=== PATIENT | female | born 1980 | race Two or more races ===

== ENCOUNTER 2020-01-27 17:46 | Emergency (ER) | payer MEDICARE, OTHER ==
[~2020-01-27] VITALS: Ht 157.5 cm; Wt 183.7 kg
--- NOTE | 2020-01-27 17:50 | NUR ---
Pt [id number]. ambulatory with steady gait. bibserlf c/o blurred vision x 1 1/2 weeks, eye test B: 20/20, R 20/20, L 20/50. PT stated she was pre diabetic and is wondering if she is diabetic. placed on monitor and pulse ox. vss. awaiting md for eval.
--- NOTE | 2020-01-27 18:48 | NUR ---
obedience trainer at bedside for labs
[2020-01-27 19:01] LABS: BASOPHILS # (AUTO) 0.1 /CMM (0.0-0.2); BASOPHILS % (AUTO) 1.3 % (0.0-2.0); EOSINOPHILS % (AUTO) 2.6 % (0.0-6.0); HEMATOCRIT 44 % (33-45); HEMOGLOBIN 14.7 g/dL (11.5-14.8); LYMPHOCYTES # (AUTO) 2.5 /CMM (0.8-4.8); LYMPHOCYTES % (AUTO) 34.6 % (20.0-44.0); MEAN CORPUSCULAR HGB CONC 34 g/dl (31.0-36.0); MEAN CORPUSCULAR VOLUME 88 fL (82-100); MONOCYTES # (AUTO) 0.6 /CMM (0.1-1.30); MONOCYTES % (AUTO) 8.1 % (2.0-12.0); NEUTROPHILS # (AUTO) 3.8 /CMM (1.8-8.9); NEUTROPHILS % (AUTO) 53.4 % (43.0-81.0); PLATELET COUNT (AUTO) 196 /CMM (150-450); RED BLOOD CELL COUNT(AUTO) 4.99 MIL/uL (4.0-5.2); WHITE BLOOD COUNT (AUTO) 7.1 K/uL (4.3-11.0)
[2020-01-27 19:12] LABS: CALCIUM, SERUM 8.9 mg/dL (8.5-10.1); CARBON DIOXIDE 30 mmol/L (21-32); CHLORIDE 103 mmol/L (98-107); CREATININE 0.8 mg/dL (0.6-1.3); GLUCOSE 138 mg/dL (74-106); POTASSIUM 3.8 mmol/L (3.5-5.1); SODIUM SERUM 139 mmol/L (136-145); UREA NITROGEN, BLOOD 11 mg/dL (7-18)
[2020-01-27 19:40] LABS: APPEARANCE,URINE Clear (CLEAR); BILIRUBIN,URINE Negative (NEGATIVE); BLOOD, URINE Moderate Ery/uL (NEGATIVE); COLOR,URINE Yellow (YELLOW); KETONES,URINE Negative (NEGATIVE); LEUKOCYTE ESTERASE ,URINE Negative (NEGATIVE); NITRITE, URINE Negative (NEGATIVE); PH,URINE 6.5 (5.0-8.0); PROTEIN,URINE Negative (NEGATIVE); UGLUCOSE Negative (NEGATIVE); UROBILINOGEN,URINE 0.2 EU/dL (0.2)
--- NOTE | 2020-01-27 19:56 | NUR ---
BROUGHT TO CT
[2020-01-27 19:58] LABS: BACTERIA,URINE Few /HPF (None Seen); SQUAMOUS EPITHELIAL CELL,UR Few /HPF (None Seen); WBC,URINE 0-2 /HPF (0-3)
--- NOTE | 2020-01-27 20:03 | NUR ---
BROUGHT BACK FROM CT
--- NOTE | 2020-01-27 20:48 | NUR ---
Patient discharged to home in stable condition. Written and verbal after care instructions given. Patient verbalizes understanding of instruction. Pt ambulated with steady gait.
[2020-01-27 20:50] VITALS: BP 128/76
== END 2020-01-27 20:51 | disposition home or self-care (01) ==
LOC: ER 17:54
DX: H53.8 Other visual disturbances (principal); R51 Headache; I10 Essential (primary) hypertension; E11.9 Type 2 diabetes mellitus without complications; M54.9 Dorsalgia, unspecified; E78.00 Pure hypercholesterolemia, unspecified; Z98.890 Other specified postprocedural states
CPT/HCPCS: 36415; 70450-TC; 80048-TC; 81000-TC; 82962-TC; 84484-TC; 84703-TC; 85025-TC

== ENCOUNTER 2021-08-03 22:40 | Emergency (ER) | payer OTHER ==
[~2021-08-03] VITALS: Ht 157.5 cm; Wt 181.4 kg
[2021-08-03 23:50] VITALS: BP 164/96
[2021-08-04] MEDS ORDERED: NAPR-1143 PO (01:56)
--- NOTE | 2021-08-04 02:03 | NUR ---
PT REC'D BILATERAL VALCRO L WRIST SPLINT
== END 2021-08-04 02:18 | disposition home or self-care (01) ==
LOC: ER 22:40
DX: G56.03 Carpal tunnel syndrome, bilateral upper limbs (principal); M65.4 Radial styloid tenosynovitis [de Quervain]; E11.9 Type 2 diabetes mellitus without complications; E78.5 Hyperlipidemia, unspecified; Z79.899 Other long term (current) drug therapy
CPT/HCPCS: 73110; 84703-TC

== ENCOUNTER 2024-03-02 23:49 | Emergency (ER) | payer OTHER ==
[~2024-03-02] VITALS: Ht 172.7 cm; Wt 136.1 kg
[~2024-03-02 23:49] MED LIST: NAPR-1143 PO
[2024-03-03] MEDS ORDERED: KETOROLAC TROMETHAMINE INJ 30 MG/ML VIAL ONE (01:43)
[2024-03-03] MEDS ORDERED: BACLOFEN (10 MG) 10 MG TABLET ONE (01:44)
[2024-03-03 01:52] LABS: PREGNANCY TEST URINE QUAL NEGATIVE (NEGATIVE)
[2024-03-03] MEDS: BACLOFEN (10 MG) 10 MG TABLET PO ONE (01:54)
[2024-03-03] MEDS: KETOROLAC TROMETHAMINE INJ 60 MG/2 ML VIAL IM ONE (02:07)
[2024-03-03 02:08] VITALS: BP 180/97; TEMP 98.6; O2SAT 98
[2024-03-03] MEDS ORDERED: KETO10TA2 PO (02:36)
[2024-03-03] MEDS ORDERED: BACL10TA PO (02:36)
== END 2024-03-03 03:25 | disposition home or self-care (01) ==
LOC: ER 23:51
DX: M48.061 Spinal stenosis, lumbar region without neurogenic claudication (principal); M54.50 Low back pain, unspecified; I10 Essential (primary) hypertension; E11.9 Type 2 diabetes mellitus without complications; E78.00 Pure hypercholesterolemia, unspecified
CPT/HCPCS: 99283; 96372; 84703; J1885